=== PATIENT | male | born 1965 | race African-American/Black ===

== ENCOUNTER → 2019-12-18 | Outpatient (CLI) | payer BC, OTHER | LOC: LAB 13:20 | PROVIDERS: ATTEND Anesthesiology | DX: Z01.812 Encounter for preprocedural laboratory examination (principal); Z20.828 Contact with and (suspected) exposure to other viral communicable diseases ==

== ENCOUNTER → 2020-04-29 | Outpatient (CLI) | payer OTHER | LOC: LAB 11:34 | PROVIDERS: ATTEND Anesthesiology | DX: U07.1 COVID-19 (principal) ==